=== PATIENT | female | born 1985 ===

== ENCOUNTER 2017-07-25 13:05 | Emergency (ER) | payer OTHER ==
--- NOTE | 2017-07-25 13:55 | ED PDOC ---
HPI: General Adult Time Seen by Provider: 07/25/17 13:47 Chief Complaint (Nursing): Chest Pain Chief Complaint (Provider): chest pain History Per: Patient History/Exam Limitations: no limitations Onset/Duration Of Symptoms: Days (few) Have you had recent travel within the past 21 days to any of the following countries: [place], [place], [place] or [place]?: No Severity: Severe Recently: Treated By A Physician ([facility]) Additional Complaint(s): pt p/w + left sided chest pain x few days but symptoms started few days ago when she noticed some whitish material/spots in her mouth as well as metallic taste in her mouth; pt states she became very concern in addition to general headaches, + poor bowel movement (last BM was 2 days ago) and generalized unwell feeling; pt states with her persistent symptoms, she went to her new doctors office today and was evaluated by [facility] and had blood tests were performed, but was not told of the results; pt continued to feel unwell and decided to come to the ED for further eval pt states NO LOC, ? 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 pt's without other complaints. PCP: [facility] Family hx: father with [place] x 2 prior to 49years old + smoker 1ppd Past Medical History Reviewed: Historical Data, Nursing Documentation, Vital Signs Vital Signs: Last Vital Signs Temp 97.6 F 07/25/17 13:16 Pulse 77 07/25/17 13:16 Resp 18 07/25/17 13:16 BP 120/76 07/25/17 13:16 Pulse Ox 100 07/25/17 14:14 - Family History Family History: States: [place] - Living Arrangements Living Arrangements: Alone - Social History Current smoker - smoking cessation education provided: Yes SMOKER/PACKS PER DAY:: 1 Ex-Smoker (has not smoked in the last 12 months): No Alcohol: Occasional Drugs: Denies - Home Medications Home Medications: Ambulatory Orders Medication Instructions Recorded Ibuprofen [Motrin] 600 mg PO TID PRN #30 tab 07/25/17 Nitrofurantoin Macrocrystals 100 mg PO BID #13 cap 07/25/17 [Macrobid] - Allergies Allergies/Adverse Reactions: Allergies Allergy/AdvReac Type Severity Reaction Status Date / Time No Known Allergies Allergy Verified 07/25/17 13:16 Review of Systems ROS Statement: Except As Marked, All Systems Reviewed And Found Negative Constitutional: Positive for: Weakness, Malaise. Negative for: Fever, Chills, Sweats Eyes: Negative for: Pain ENT: Positive for: Other (throat issue). Negative for: Ear Pain Cardiovascular: Positive for: Chest Pain, Light Headedness. Negative for: Palpitations Respiratory: Negative for: Cough, Shortness of Breath, SOB with Exertion, Pleuritic Pain Gastrointestinal: Positive for: Constipation. Negative for: Nausea, Vomiting, Abdominal Pain Genitourinary Female: Negative for: Dysuria, Frequency, Hematuria Musculoskeletal: Positive for: Back Pain. Negative for: Neck Pain Skin: Negative for: Rash Neurological: Positive for: Weakness, Headache. Negative for: Dizziness Psych: Positive for: Anxiety. Negative for: Depression Physical Exam - Reviewed Nursing Documentation Reviewed: Yes Vital Signs Reviewed: Yes (WNL) - Physical Exam Comments: General: alert/awake, GCS = 15, oriented x 3, resting in bed, uncomfortable, cooperative, interactive; NAD; tearful, appearing anxious Head: NC/AT EYE: PERRLA, EOMI, sclera anicteric, no nystagmus, no photophobia; visual field intact b/l Facial: WNL Oral: uvula/tongue are midline, no exudate/lesions, no drooling/stridor, no dysphonia; intact dentitions NECK: intact ROM, no midline tenderness, no nuchal rigidity, no meningeal signs ; no step off Chest: CTA b/l, no w/r/r; no tachypenia, no accessory muscle use noted; no crepitus noted on exam, no gross deformities noted on exam Cardiac: +S1, +S2, no m/r/r, no tachycardia Abdominal: +BS, soft/nd/nt, well nourished patient; no masses/rebound/guarding/ rigidity; no ponce's sign, no mcburney's point tenderness : N/A Extremities: intact ROM, strength 5/5 grossly intact in all limbs, neurovasc intact b/l; + ambulatory; reflex +2/2 BACK: no step off, no midline tenderness, NO crepitus, no gross deformities noted; Intact ROM SKIN: cap refill < 1 sec, no ulcerations, no petechiae, no rashes; no gross pallor NEURO: CNII-XII WNL, no facial asymmetries, no slurr speech, oriented x 3 NIH stroke scale ~ 0 Psych: normal insight, normal affect; follows command with ease - Laboratory Results Result Diagrams: 07/25/17 14:00 07/25/17 14:00 Interpretation Of Abnormal: + UTI - ECG ECG: Positive for: Interpreted By Me, Viewed By Me Interpretation Of ECG: NSR at 60 bpm, normal axis, with sinus arrhythmia, no st-t changes, otherwise WNL EKG; no old ekg to compare with O2 Sat by Pulse Oximetry: 100 Pulse Ox Interpretation: Normal - Radiology X-Ray: Viewed By Me, Read By Radiologist - Progress ED Course And Treament: 2:00pm - nursing staff came to me and states patient does not want to see me as her doctor and is requesting a 2nd doctor to see/evaluate her; I spoke to Dr Mckeon who agrees to see/evaluate the patient 250pm - Dr Mckeon evaluated patient and agrees with my evaluation, will continue the dx/treatment plan as set forth pt is currently awaiting her results HISTORY: COMPARISON: No prior. TECHNIQUE: Chest PA and lateral FINDINGS: LINES AND TUBES: None. LUNG AND PLEURA: The lungs are hyperinflated and there is peribronchial thickening with chronic changes in both lungs. No focal consolidation. HEART AND MEDIASTINUM: The heart is not enlarged. The hilar and mediastinal contours are within normal limits. SKELETAL STRUCTURES: The bony structures are within normal limits for the patient's age. VISUALIZED UPPER ABDOMEN: Normal. OTHER FINDINGS: None. IMPRESSION: No active pulmonary disease. COPD. 4:25pm - DR Campoverde was endorsed the patient from Dr Mckeon, Dr Campoverde was able to re-eval patient and pt is made aware of her medical results and answer any questions she may have vital signs WNL pt is made aware of her medical results pt is encouraged smoking cessation pt will f/u as directed pt will be discharged home Re-evaluation Time: 14:05 Condition: Unchanged Medical Decision Making Medical Decision Making: Impression: chest pain; throat issue/headache i have consider all the differential diagnosis regarding pt's chief medical complaints/clinical findings, including but are not limited to: chest pain; throat issue/headache A/P: chest pain, atypical; throat issue/headache - labs - iv - xray - trop eval - supportive care - observe/reevaluation Disposition - Clinical Impression Clinical Impression: UTI (urinary tract infection), Atypical chest pain, Headache - Patient ED Disposition Is Patient to be Admitted: No Counseled Patient/Family Regarding: Studies Performed, Diagnosis, Need For Followup, Rx Given, Smoking Cessation - Disposition Referrals: PCP,NO [Non-Staff[facility] - [facility] [Outside] [facility] [Outside] [facility] [Outside] Disposition: Routine/Home Disposition Time: 16:21 Condition: STABLE Additional Instructions: Make sure to see your doctor in 1-2 days make sure to follow up with your doctor if persistent chest pain DRINK PLENTY OF FLUIDS take your medications as prescribed SMOKING cessation is encouraged RETURN TO ED IF worse pain, cant breath, persistent vomiting, high fever >101- 102 for hours, altered behavior, slurr speech, facial changes, focal weakness ( arm/leg or both), unable to urinate, heavy/persistent bleeding, passing out, chest pain, or other medical emergencies Prescriptions: Ibuprofen [Motrin] 600 mg PO TID PRN #30 tab PRN Reason: Pain, Mild (1-3) Nitrofurantoin Macrocrystals [Macrobid] 100 mg PO BID #13 cap Instructions: Urinary Tract Infections in Adults, Headache, Adult, Chest Pain That Is Not Caused by the Heart (DC) Forms: [employer] (Icelandic) Print Language: KAZAKH
[2017-07-25 14:12] LABS: BASO # 0.1 K/uL (0.0-0.2); BASO % 0.7 % (0.0-2.0); EOS # 0.3 K/uL (0.0-0.7); EOS % 2.8 % (0.0-4.0); HEMOGLOBIN 14.8 g/dL (12.0-16.0); LYMPH # 2.8 K/uL (1.0-4.3); LYMPH % 29.4 % (20.0-40.0); MEAN CELL VOLUME 87.8 fl (81.0-99.0); MEAN CORPUSCULAR HEMOGLOBIN 30.4 pg (27.0-31.0); MEAN CORPUSCULAR HGB CONC 34.6 g/dL (33.0-37.0); MONO # 0.7 K/uL (0.0-0.8); MONO % 7.1 % (0.0-10.0); NEUT # 5.7 K/uL (1.8-7.0); NRBC % 0.1 % (0.0-0.0); RBC 4.88 Mil/uL (3.80-5.20); RED CELL DISTRIBUTION WIDTH 13.4 % (11.5-14.5); WHITE BLOOD COUNT 9.6 K/uL (4.8-10.8)
[2017-07-25 14:26] LABS: SQUAMOUS EPITHIAL 5 /hpf (0-5); URINE BACTERIA OCC (<OCC); URINE BILIRUBIN NEGATIVE (NEGATIVE); URINE BLOOD NEGATIVE (NEGATIVE); URINE CLARITY CLOUDY (Clear); URINE COLOR YELLOW (YELLOW); URINE GLUCOSE (UA) NEG (Normal); URINE LEUKOCYTE ESTERASE TRACE Leu/uL (Negative); URINE PROTEIN NEGATIVE (NEGATIVE); URINE UROBILINOGEN 0.2-1.0 mg/dL (0.2-1.0)
[2017-07-25 14:36] LABS: ALB/GLOB RATIO 1.3 (1.0-2.1); ALBUMIN 4.1 g/dL (3.5-5.0); ALT/SGPT 38 U/L (9-52); AST/SGOT 21 U/L (14-36); BLOOD UREA NITROGEN 9 mg/dl (7-17); CALCIUM 9.4 mg/dL (8.4-10.2); GFR AFRICAN-AMERICAN > 60; GFR NON-AFRICAN AMERICAN > 60; LIPASE 53 U/L (23-300)
[2017-07-25] MEDS: Sodium Chloride 0.9% 1,000 ML IV SCH ×3 (14:51→16:31)
--- NOTE | 2017-07-25 15:09 | RAD ---
HISTORY: COMPARISON: No prior. TECHNIQUE: Chest PA and lateral FINDINGS: LINES AND TUBES: None. LUNG AND PLEURA: The lungs are hyperinflated and there is peribronchial thickening with chronic changes in both lungs. No focal consolidation. HEART AND MEDIASTINUM: The heart is not enlarged. The hilar and mediastinal contours are within normal limits. SKELETAL STRUCTURES: The bony structures are within normal limits for the patient's age. VISUALIZED UPPER ABDOMEN: Normal. OTHER FINDINGS: None. IMPRESSION: No active pulmonary disease. COPD.
[2017-07-25 16:33] VITALS: BP 128/77; PULSE 79; RESP 17; TEMP 97.8
[2017-07-25 16:42] VITALS: O2SAT 100
--- NOTE | 2017-07-26 14:59 | CARD ---
APPROVED REPORT EKG Measurement Heart [id number] <Conclusion> Normal sinus rhythm with sinus arrhythmia Normal ECG
== END 2017-07-25 16:30 | disposition home or self-care (01) ==
LOC: H.ER 13:05
DX: N39.0 Urinary tract infection, site not specified (principal); R07.9 Chest pain, unspecified; R51 Headache; F17.210 Nicotine dependence, cigarettes, uncomplicated; J44.9 Chronic obstructive pulmonary disease, unspecified; Z82.49 Family history of ischemic heart disease and other diseases of the circulatory system
CPT/HCPCS: 71046; 80053; 81003; 81025; 83690; 83735; 84100; 84443; 84484; 85025; 85378; 93005; 96360; 99284; J7040